=== PATIENT | male | born 1995 | race Caucasian/White ===

== ENCOUNTER 2018-08-27 12:10 | Outpatient (CLI) | payer OTHER, SELFPAY ==
[2018-08-28 10:57] LABS: Hepatitis B Surface Ag Negative (NEGAT)
[2018-08-28 11:15] LABS: HIV-1/2 Ag & Ab Screen Negative (NEGAT)
[2018-08-29 11:14] LABS: HSV Type 1 Ab, IgG Positive; HSV Type 2 Ab, IgG Negative
== END 2018-08-27 12:30 ==
PROVIDERS: PCP General Practice; Visit Provider General Practice
DX: Z11.59 Encounter for screening for other viral diseases (principal); Z11.4 Encounter for screening for human immunodeficiency virus [HIV]
CPT/HCPCS: 36415; 87340; 87389; 86695; 86696

== ENCOUNTER 2019-06-03 21:35 | Outpatient (REF) | payer OTHER, SELFPAY ==
[2019-06-05 10:17] LABS: Syphilis Serology (RPR) Negative (Negative)
[2019-06-05 11:45] LABS: HIV-1/2 Ag & Ab Screen Negative (Negative)
[2019-06-05 15:53] LABS: Chlamydia Result Negative (Negative)
[2019-06-06 08:45] LABS: GC Result Negative (Negative)
== END 2019-06-03 21:55 ==
LOC: NCHCN 21:35
PROVIDERS: PCP General Practice; Visit Provider Specialist/Technologist Athletic Trainer
DX: Z11.3 Encounter for screening for infections with a predominantly sexual mode of transmission (principal); Z11.4 Encounter for screening for human immunodeficiency virus [HIV]
CPT/HCPCS: 87389; 87491; 87591; 86592

== ENCOUNTER 2020-04-07 22:13 | Outpatient (REF) | payer OTHER, SELFPAY ==
[2020-04-09 08:57] LABS: HBs Antibody, Quant 18.7 mIU/mL (See Note); Hepatitis B Surface Ab Positive (See Note)
[2020-04-09 09:45] LABS: HIV-1/2 Ag & Ab Screen Negative (Negative)
[2020-04-09 10:05] LABS: Hepatitis C Ab w Rflx HCV PCR Negative (Negative)
== END 2020-04-07 22:33 ==
LOC: NCHCN 22:13
PROVIDERS: PCP General Practice; Visit Provider Nurse Practitioner Family
DX: Z11.59 Encounter for screening for other viral diseases (principal); Z11.4 Encounter for screening for human immunodeficiency virus [HIV]; Z11.3 Encounter for screening for infections with a predominantly sexual mode of transmission
CPT/HCPCS: 86706; 86803; 87389

== ENCOUNTER 2020-04-08 08:40 | Outpatient (REF) | payer SELFPAY ==
[2020-04-10 15:00] LABS: Chlamydia Result Negative (Negative); GC Result Negative (Negative)
== END 2020-04-08 09:00 ==
LOC: NCHCN 08:40
PROVIDERS: PCP General Practice; Visit Provider Nurse Practitioner Family
DX: Z11.3 Encounter for screening for infections with a predominantly sexual mode of transmission (principal)
CPT/HCPCS: 87491; 87591

== ENCOUNTER 2020-06-10 18:47 | Outpatient (REF) | payer OTHER, SELFPAY ==
[2020-06-12 09:56] LABS: Hepatitis C Ab w Rflx HCV PCR Negative (Negative)
[2020-06-12 10:12] LABS: HIV-1/2 Ag & Ab Screen Negative (Negative)
[2020-06-12 10:30] LABS: HSV Type 1 Ab, IgG Positive (Negative); HSV Type 2 Ab, IgG Negative (Negative)
== END 2020-06-10 18:48 | disposition home or self-care (01) ==
LOC: NCHCN 18:47
PROVIDERS: PCP Nurse Practitioner Family; Visit Provider Nurse Practitioner Family
DX: Z11.3 Encounter for screening for infections with a predominantly sexual mode of transmission (principal); Z11.4 Encounter for screening for human immunodeficiency virus [HIV]; Z11.59 Encounter for screening for other viral diseases
CPT/HCPCS: 86787; 86803; 87389; 86695; 86696

== ENCOUNTER 2022-09-24 13:50 | Emergency (ER) | payer BC, SELFPAY ==
[2022-09-24 13:53] VITALS: BP 146/89; PULSE 89; RESP 16; TEMP 36.6; O2SAT 96
[2022-09-24 14:09] VITALS: BP 145/105; PULSE 99
[2022-09-24 14:15] VITALS: BP 139/110; PULSE 96
--- NOTE | 2022-09-24 14:15 | ED.GENADUL_ITS ---
Discharge Plan Disposition Patient Disposition: Home Discharge Details Clinical Impression: Hydronephrosis with ureteral calculus Primary Care Provider: Jeanne Galeas ED Provider: Hans Cervantes Home Meds and New Rx's Prescriptions: New ketorolac 10 mg tablet 10 mg PO TID PRN (Reason: pain) Qty: 15 0RF ondansetron HCl 4 mg tablet 4 mg PO Q8H PRN (Reason: nausea and vomiting) Qty: 10 0RF tamsulosin [Flomax] 0.4 mg capsule 0.4 mg PO QHS Qty: 14 0RF Continued sertraline [Zoloft] 100 MG tablet 100 mg PO DAILY Discontinued tramadol 50 MG tablet 50 mg PO Q6H PRN (Reason: Pain) Qty: 20 0RF Patient Comments: PT states he does not remember ever taking this med. Discharge Instructions Instructions: Kidney Stones (ED), How to Strain Your Urine (ED) Additional Instructions: It is very important that you stay well-hydrated as discussed. Feel free to return the emergency department for any new or significant worsening of symptoms such as inability to pee or fevers. Otherwise follow-up with urology if you have not passed the stone within the next 2 weeks. Referrals: [facility] [Provider Group] (Please call the office next week for arrangement of follow-up appointment) Discharge Data Discharge Date/Time-TO BE ENTERED AT DEPARTURE: 09/24/22 16:50 <Hans Cervantes NP - Last Filed: 09/29/22 08:07> 1600-patient signed out to me by Lashawn Fairbanks NP. Patient pending CT imaging results for left lower quadrant abdominal pain. Please see previous documentation for presentation, physical exam, review of systems, and plan of care. Reviewed CT imaging which shows a 4 mm kidney stone with hydronephrosis. Reassessed patient patient states pain is improved. Will discharge patient on ketorolac, Zofran, and Flomax and will give patient a referral to urology for follow-up if he does not pass a stone on his own. Patient encouraged to stay well-hydrated and return for new or worsening symptoms. After discussion of diagnosis and plan of care patient has no further needs, questions, or concerns and states clear understanding to return to the emergency department for any worsening symptoms. This documentation was generated using [employer] system, please disregard any oddities of phrase or misspellings. Imaging Data Radiologic Study: Imaging: CT Scan Radiologist's impression: Exam(s) PROCEDURE INFORMATION: Exam: CT Abdomen And Pelvis Without Contrast Exam date and time: 09/24/2022 3:00 PM Age: 27 years old Clinical indication: Abdominal pain; Flank; Left TECHNIQUE: Imaging protocol: Computed tomography of the abdomen and pelvis without contrast. COMPARISON: No relevant prior studies available. FINDINGS: Limitations: Full evaluation is suboptimal without intravenous contrast. Liver: Normal. No mass. Gallbladder and bile ducts: Normal. No calcified stones. No ductal dilation. Pancreas: Normal. No ductal dilation. Spleen: Normal. No splenomegaly. Adrenal glands: Normal. No mass. Kidneys and ureters: Mild left hydronephrosis and hydroureter extending to a 4 mm calculus at the L3 level (series 4, image 52) Stomach and bowel: Unremarkable. No obstruction. No mucosal thickening. Appendix: Appendicoliths are noted. No evidence of acute appendicitis. Intraperitoneal space: Unremarkable. No free air. No significant fluid collection. Vasculature: Unremarkable. No abdominal aortic aneurysm. Lymph nodes: Unremarkable. No enlarged lymph nodes. Urinary bladder: Unremarkable as visualized. Reproductive: Unremarkable as visualized. Bones/joints: Unremarkable. No acute fracture. Soft tissues: Small fat containing umbilical hernia. IMPRESSION: Left hydronephrosis and hydroureter extending to a 4 mm left ureteral calculus at the L3 level. HPI <Lashawn Fairbanks NP - Last Filed: 09/24/22 15:50> General Mode of arrival: ambulatory . Date/Time Provider Initiated Documentation: 09/24/22 13:52 . Limitations to Documentation: no limitations . Information obtained by: patient, RN notes reviewed and old records reviewed . HPI Narrative: 27-year-old male presents to the ER with a chief complaint of left sided abdominal pain which waxes and wanes he reports that it began on Monday and has gradually increased to intolerable pain today. He did take ibuprofen and MiraLAX today prior to arrival which has done little to nothing to alleviate the pain. He denies any nausea vomiting diarrhea denies any problems urinating or any other associated symptoms. No history of abdominal surgeries. He denies any drugs or alcohol. Related Data Home Medications Medication Instructions Recorded Confirmed sertraline 100 mg tablet (Zoloft) 100 mg PO DAILY 01/27/17 09/24/22 ketorolac 10 mg tablet 10 mg PO TID PRN pain #15 tabs 09/24/22 ondansetron HCl 4 mg tablet 4 mg PO Q8H PRN nausea and 09/24/22 vomiting #10 tabs tamsulosin 0.4 mg capsule (Flomax) 0.4 mg PO QHS #14 caps 09/24/22 Previous Rx's Medication Instructions Recorded ketorolac 10 mg tablet 10 mg PO TID PRN pain #15 tabs 09/24/22 ondansetron HCl 4 mg tablet 4 mg PO Q8H PRN nausea and 09/24/22 vomiting #10 tabs tamsulosin 0.4 mg capsule (Flomax) 0.4 mg PO QHS #14 caps 09/24/22 Allergies Allergy/AdvReac Type Severity Reaction Status Date / Time No Known Allergies Allergy Unverified 09/24/22 14:08 General Stated Complaint: Abd Prob ÁLVARO: 3 PFSH <Lashawn Fairbanks NP - Last Filed: 09/24/22 15:50> All Active Problems (Updated 09/24/22 @ 16:30 by Hans Cervantes NP) Encounter for vasectomy (Acute) Hydronephrosis with ureteral calculus (Acute) Social History Smoking/Tobacco Use Status: Never Smoking risk assessment performed?: Yes Drug use: Never Course <Lashawn Fairbanks NP - Last Filed: 09/24/22 15:50> Vital Signs Vital signs: Vital Signs Temperature 36.6 C 09/24/22 13:53 Pulse 89 09/24/22 13:53 Respiratory Rate 16 09/24/22 13:53 Blood Pressure 146/89 H 09/24/22 13:53 Pulse Oximetry 96 09/24/22 13:53 Temperature 36.6 C 09/24/22 13:53 Temperature Source Skin 09/24/22 13:53 Pulse 89 09/24/22 13:53 Respiratory Rate 16 09/24/22 13:53 Blood Pressure 146/89 H 09/24/22 13:53 Blood Pressure Position Sitting 09/24/22 13:53 Pulse Oximetry 96 09/24/22 13:53 Oxygen Delivery Method Room Air 09/24/22 13:53 Oxygen Flow Rate 0 09/24/22 13:53 Pain Level 7 09/24/22 13:53 Sign Out <Lashawn Fairbanks NP - Last Filed: 09/24/22 15:50> Sign Out Data: Sign Out Comment: Pending CT result, Suspect Kidney stone, Left Flank pain. Received Toradol. Last updated by Lashawn Fairbanks NP at 09/24/22 15:41
--- NOTE | 2022-09-24 14:30 | DI.CT_ITS ---
Exam(s) CT ABDOMEN PELVIS WO EXAM: CT ABDOMEN PELVIS WO CLINICAL HISTORY: Left Flank pain. TECHNIQUE: Imaging Protocol: Axial computed tomography images with coronal and sagittal reformatted images were created and reviewed. COMPARISON: No priors for comparison. FINDINGS: ABDOMEN: Lung Bases: Normal where visualized. Liver: Normal density. No measurable mass. Gallbladder and biliary tract: No radiodense calculus or biliary ductal dilation. Pancreas: Normal density, no abnormal calcifications or inflammatory process. Spleen: Normal. Kidneys: Normal size, contour and axis.There is a 3 mm stone in the proximal left ureter with minimal hydronephrosis. No nephrolithiasis. No masses seen. Adrenal glands: No mass is seen. Lymph nodes: Within normal limits. Abdominal Aorta: Abdominal portion non-dilated. PELVIS: Bladder:The bladder is incompletely distended limiting evaluation. No gross abnormalities identified . Bowel: No obstruction or bowel wall thickening. The appendix is nondistended. There are high-density foci within the appendix which may represent appendicoliths. No evidence to suggest acute appendici tis. Peritoneal cavity: No ascites, collection or mesenteric inflammatory response. No free air. Reproductive organs: Unremarkable as visualized. Bones: Within normal limits. Soft Tissues: There is a small fat containing umbilical hernia. There is also small fat containing l eft inguinal hernia. IMPRESSION: 3 mm proximal left ureteral calculus causing mild hydronephrosis. RADIATION DOSE DELIVERED: 1,102.72mGy.cm Total DLP DATA REPOSITORY: All CT scans at this facility are submitted to the National Radiology Data Registry (NRDR) Dose Index Registry (DIR) with the [employer] ([employer]). RADIATION OPTIMIZATION: All CT scans at this facility use at least one of these dose optimization te chniques: automated exposure control; mA and/or kV adjustment per patient size (includes targeted exa ms where dose is matched to clinical indication); or iterative reconstruction.
[2022-09-24 14:31] LABS: Abs Immature Grans 0.05 10^3/uL (0.0-0.06); Absolute Basophil Count 0.04 10^3/uL (0.0-0.2); Absolute Eosinophil Count 0.03 10^3/uL (0.0-0.7); Absolute Lymphocyte Count 1.24 10^3/uL (1.2-3.4); Absolute Monocyte Count 0.93 10^3/uL (0.1-0.8); Basophils % 0.3; Eosinophils % 0.2; HCT 45.3 % (40.0-50.0); HGB 15.7 g/dL (13.5-17.5); Immature Grans % 0.4; Lymphocytes % 9.8; MCHC 34.7 % (32.0-36.0); MCV 87 fL (80-95); MPV 10.1 fL (8.0-11.0); Monocytes % 7.4; Neutrophils % 81.9; Platelet Count 315 10^3/uL (130-400); RBC 5.24 10^6/uL (4.36-5.78); RDW 11.8 % (11.8-14.1); RDW-SD 37.4 fL; WBC 12.62 10^3/uL (4.4-10.8)
[2022-09-24 14:33] LABS: Absolute Neutrophil Count 10.34 10^3/uL (1.2-6.7)
[2022-09-24 14:39] LABS: Bilirubin Negative (Negative); Blood Large (Negative); Clarity Sl Cloudy (Clear); Glucose Negative (Negative); Ketones Negative (Negative); Leukocyte Esterase Negative (Negative); Nitrite Negative (Negative); Specific Gravity 1.025 (1.005-1.025); Urobilinogen 0.2 mg/dL (Up to 0.2); pH 5.5 (5-8)
[2022-09-24] MEDS: Ketorolac 30 MG/ML VIAL IVP (14:42)
[2022-09-24] MEDS: Normal Saline 1,000 ML 1000 ML IV (14:42)
[2022-09-24 14:52] LABS: ALT 29 U/L (16-63); AST 18 U/L (15-37); Albumin 4.4 g/dL (3.4-5.0); Alkaline Phosphatase 135 U/L (46-116); Anion Gap 6.8 mmol/L (3-11); BUN 24 mg/dL (7-18); Bilirubin, Total 0.4 mg/dL (0.2-1.0); CO2 29.2 mmol/L (21.0-32.0); CREATININE 1.6 mg/dL (0.70-1.30); Calcium 9.6 mg/dL (8.5-10.1); Chloride 104 mmol/L (98-107); Estimated GFR 59.44 (mL/min/1.73m2); Glucose 103 mg/dL (74-106); Lipase 18 U/L (16-77); Magnesium 2.4 mg/dL (1.8-2.4); Potassium 4.1 mmol/L (3.5-5.1); Sodium 140 mmol/L (136-145); Total Protein 8.1 g/dL (6.4-8.2)
[2022-09-24 14:55] LABS: Bacteria Few HPF (Negative); C & S Indicated? Yes; Casts Negative LPF (Negative); Crystals Few Amorphous HPF (Negative); Epithelial Cells Rare HPF (Negative); Mucus Negative (Negative); RBC 20-50 HPF (0-2); WBC 0-2 HPF (0-5)
--- NOTE | 2022-09-24 15:47 | DI.VRAD_ITS ---
PROCEDURE INFORMATION: Exam: CT Abdomen And Pelvis Without Contrast Exam date and time: 09/24/2022 3:00 PM Age: 27 years old Clinical indication: Abdominal pain; Flank; Left TECHNIQUE: Imaging protocol: Computed tomography of the abdomen and pelvis without contrast. COMPARISON: No relevant prior studies available. FINDINGS: Limitations: Full evaluation is suboptimal without intravenous contrast. Liver: Normal. No mass. Gallbladder and bile ducts: Normal. No calcified stones. No ductal dilation. Pancreas: Normal. No ductal dilation. Spleen: Normal. No splenomegaly. Adrenal glands: Normal. No mass. Kidneys and ureters: Mild left hydronephrosis and hydroureter extending to a 4 mm calculus at the L3 level (series 4, image 52) Stomach and bowel: Unremarkable. No obstruction. No mucosal thickening. Appendix: Appendicoliths are noted. No evidence of acute appendicitis. Intraperitoneal space: Unremarkable. No free air. No significant fluid collection. Vasculature: Unremarkable. No abdominal aortic aneurysm. Lymph nodes: Unremarkable. No enlarged lymph nodes. Urinary bladder: Unremarkable as visualized. Reproductive: Unremarkable as visualized. Bones/joints: Unremarkable. No acute fracture. Soft tissues: Small fat containing umbilical hernia. IMPRESSION: Left hydronephrosis and hydroureter extending to a 4 mm left ureteral calculus at the L3 level. Dictated and Authenticated by: Rodney Rodriguez MD. Ordering:JOSE Hardin MD
--- NOTE | 2022-09-24 16:38 | NUR.NOTE ---
Nursing Note: Referral faxed to Urology for visit in 1-2 weeks
== END 2022-09-24 16:50 | disposition home or self-care (01) ==
PROVIDERS: Registered Nurse Emergency; Emergency Provider Nurse Practitioner Family; PCP Nurse Practitioner Family
DX: N13.2 Hydronephrosis with renal and ureteral calculous obstruction (principal)
CPT/HCPCS: 36415; 80053; 83690; 96361; 96374; 99284; 74176; 81003; 81015; 83735; 85025; 87086; J1885